=== PATIENT | female | born 1960 | race Caucasian/White ===

== ENCOUNTER 2017-10-17 15:01 | Inpatient (IN) | payer MEDICAID ==
[~2017-10-17] VITALS: Ht 157.5 cm; Wt 74.6 kg
[2017-10-17 15:03] VITALS: Ht 157.5 cm; Wt 74.6 kg
[2017-10-17 15:37] LABS: BASOPHIL % 0.6 % (0-2); PLATELET COUNT 267 x10^3mcL (130-400)
[2017-10-17 15:44] LABS: CALCIUM 8.7 mg/dL (8.5-10.1); CARBON DIOXIDE 23.5 mmol/L (21-32); CHLORIDE SERUM 107 mmol/L (98-107); CREATININE SERUM 0.9 mg/dL (0.6-1.0); GFR1 > 60 mL/min; GLUCOSE SERUM 112 mg/dL (74-106); POTASSIUM SERUM 3.8 mmol/L (3.5-5.1); SODIUM SERUM 144 mmol/L (136-145)
[2017-10-17 16:28] LABS: ALBUMIN 3.9 g/dL (3.4-5.0); ALKALINE PHOSPHATASE 84 U/L (46-116); ALT/SGPT 33 U/L (14-59); AST/SGOT 23 U/L (15-37); BILIRUBIN TOTAL 0.36 mg/dL (0.20-1.00); TOTAL PROTEIN, SERUM 7.8 g/dL (6.4-8.2)
[2017-10-17] MEDS ORDERED: TAM75 PO (16:53)
[2017-10-17 17:52] VITALS: BP 124/68
[2017-10-17 18:19] VITALS: BP 124/68
[2017-10-17] MEDS ORDERED: PROAIR HFA8.5 GM (19:05)
[2017-10-17] MEDS ORDERED: VENTOLIN H0.09 MG/A1 INH (19:05)
[2017-10-17] MEDS ORDERED: IBUPROFEN400 MG PO (19:05)
[2017-10-17 20:46] VITALS: BP 111/55
[2017-10-18 03:00] LABS: UA SPECIFIC GRAVITY >=1.030 (1.005-1.035); urine erythrocyte NEGATIVE (NEGATIVE)
[2017-10-18 04:56] LABS: microscopic required? YES
[2017-10-18 05:53] VITALS: BP 111/58
[2017-10-18 07:48] LABS: BASOPHIL % 0 % (0-2); PLATELET COUNT 238 x10^3mcL (130-400); RED CELL DISTRIBUTION WIDTH 13.9 % (11.5-14.5)
[2017-10-18 07:50] LABS: CALCIUM 9.6 mg/dL (8.5-10.1); CARBON DIOXIDE 22.6 mmol/L (21-32); CHLORIDE SERUM 104 mmol/L (98-107); CREATININE SERUM 0.9 mg/dL (0.6-1.0); GFR1 > 60 mL/min; GLUCOSE SERUM 153 mg/dL (74-106); MAGNESIUM 2.1 mg/dL (1.8-2.4); PHOSPHOROUS 3.6 mg/dL (2.5-4.9); POTASSIUM SERUM 4.7 mmol/L (3.5-5.1); SODIUM SERUM 139 mmol/L (136-145)
[2017-10-18 08:49] VITALS: BP 134/70
[2017-10-18] MEDS ORDERED: LEVAQUIN750 MG PO (11:11)
[2017-10-18] MEDS ORDERED: LAC PO (11:14)
[2017-10-18 11:20] VITALS: BP 134/70
[2017-10-18 11:50] LABS: CHOLESTEROL/HDL RATIO 3.3
[2017-10-18] MEDS ORDERED: LIPI10 PO (12:13)
[2017-10-18 13:00] VITALS: BP 118/71
== END 2017-10-18 15:15 | disposition home or self-care (01) | DRG 141 ==
LOC: ED 15:01 → DU 16:51
PROVIDERS: Emergency Medicine; Family Medicine
DX: J45.901 Unspecified asthma with (acute) exacerbation (principal); J96.00 Acute respiratory failure, unspecified whether with hypoxia or hypercapnia; N17.0 Acute kidney failure with tubular necrosis; R65.10 Systemic inflammatory response syndrome (SIRS) of non-infectious origin without acute organ dysfunction; I08.1 Rheumatic disorders of both mitral and tricuspid valves; M94.0 Chondrocostal junction syndrome [Tietze]; Z68.28 Body mass index [BMI] 28.0-28.9, adult; E78.5 Hyperlipidemia, unspecified; D72.829 Elevated white blood cell count, unspecified
CPT/HCPCS: 36600; 87804; J1956; J2920; J2930; J3475; J7613; J7620; J7626; J7644; Q0092

== ENCOUNTER 2017-12-10 20:15 | Emergency (ER) | payer MEDICAID ==
[~2017-12-10] VITALS: Ht 157.5 cm; Wt 73.0 kg
[~2017-12-10 20:15] MED LIST: IBUPROFEN400 MG PO; LAC PO; LEVAQUIN750 MG PO; LIPI10 PO; PROAIR HFA8.5 GM; TAM75 PO; VENTOLIN H0.09 MG/A1 INH
[2017-12-10 20:21] VITALS: Ht 157.5 cm; Wt 73.0 kg
[2017-12-10 21:32] LABS: BASOPHIL % 0.3 % (0-2); PLATELET COUNT 198 x10^3mcL (130-400); RED CELL DISTRIBUTION WIDTH 13.8 % (11.5-14.5)
[2017-12-10 21:46] LABS: CALCIUM 8.4 mg/dL (8.5-10.1); CARBON DIOXIDE 19.3 mmol/L (21-32); CHLORIDE SERUM 103 mmol/L (98-107); GFR1 > 60 mL/min; GLUCOSE SERUM 118 mg/dL (74-106); POTASSIUM SERUM 3.6 mmol/L (3.5-5.1); SODIUM SERUM 135 mmol/L (136-145)
[2017-12-10 21:51] LABS: ALBUMIN 3.8 g/dL (3.4-5.0); ALKALINE PHOSPHATASE 71 U/L (46-116); ALT/SGPT 30 U/L (14-59); AMYLASE 47 U/L (25-115); AST/SGOT 20 U/L (15-37); BILIRUBIN TOTAL 0.7 mg/dL (0.20-1.00); LIPASE 95 IU/L (73-393); TOTAL PROTEIN, SERUM 7.2 g/dL (6.4-8.2)
[2017-12-10 22:27] LABS: UA SPECIFIC GRAVITY 1.015 (1.005-1.035); microscopic required? YES; urine erythrocyte NEGATIVE (NEGATIVE)
[2017-12-11 02:01] VITALS: BP 117/87
== END 2017-12-11 02:01 | disposition home or self-care (01) ==
LOC: ED 20:15
PROVIDERS: Emergency Medicine
DX: K52.9 Noninfective gastroenteritis and colitis, unspecified (principal); R11.2 Nausea with vomiting, unspecified; J45.909 Unspecified asthma, uncomplicated
CPT/HCPCS: 83880; C9113; J0780; J2405; J7040